=== PATIENT | male | born 1955 | race Caucasian/White ===

== ENCOUNTER 2018-05-08 16:25 | Emergency (ER) | payer OTHER ==
[~2018-05-08] VITALS: Ht 175.3 cm; Wt 90.9 kg
[~2018-05-08 16:25] MED LIST: ASPIR-LOW81 MG PO; ASPIRIN E.C. 8181 MG PO; DILTIAZEM CD120 MG PO; FISH OIL1 IU PO; FLECAINIDE ACET50 MG PO; MULTIPLE VITAMI1 CAP PO; MULTIVITAMIN PO; PRADAXA 150MG150 MG PO; PRADAXA150 MG PO
[2018-05-08 16:37] VITALS: TEMP 97
[2018-05-08 17:09] LABS: BASO # 0.1 (0.0-0.2); EOS # 0.4 (0.0-0.7); EOS % 5.5 % (0-4.0); GRAN # 4.3 (1.4-6.5); GRAN % 61.5 % (42.2-75.2); HEMATOCRIT 46.8 % (42.0-52.0); LYMPH # 1.5 (1.2-3.4); LYMPH % 21.8 % (20.0-51.0); MEAN CELL VOLUME 95 fl (80.0-100.0); MEAN CORPUSCULAR HEMOGLOBIN 32 pg (27.0-31.0); MEAN CORPUSCULAR HGB CONC 34 g/dl (33.0-37.0); MEAN PLATELET VOLUME 9.4 fl (7.4-10.4); MONO # 0.7 (0.1-0.6); MONO % 10.1 % (1.7-9.3); PLATELET COUNT 201 K/mm3 (130-400); RED BLOOD COUNT 4.94 M/mm3 (4.20-5.60); REDCELL DISTRIBUTION WIDTH-CV 12.2 % (11.5-14.5)
[2018-05-08 17:11] LABS: INR 0.9 (0.8-3.0); PROTHROMBIN TIME 10.6 SECONDS (9.7-12.8)
[2018-05-08 17:18] LABS: ALANINE AMINOTRANSFERASE 23 U/L (21-72); ALBUMIN 4.1 gm/dL (3.5-5.0); ALKALINE PHOSPHATASE 103 U/L (50-136); ANION GAP 9 mmol/L (7-16); AST,SGOT 43 U/L (15-37); BILIRUBIN,TOTAL 0.4 mg/dL (0.0-1.0); BLOOD UREA NITROGEN 18 mg/dL (9-20); CALCIUM 9.5 mg/dL (8.4-10.2); CARBON DIOXIDE 25 mmol/L (22-30); CHLORIDE 103 mmol/L (98-107); CREATININE, serum 0.82 mg/dL (0.66-1.25); GLUCOSE 103 mg/dL (74-106); POTASSIUM 4.1 mmol/L (3.4-5.0); SODIUM 137 mmol/L (137-145); TOTAL PROTEIN 6.7 gm/dL (6.4-8.2)
[2018-05-08 17:32] LABS: TROPONIN-I < 0.012 ng/mL (0.000-0.035)
[2018-05-08 21:32] VITALS: BP 142/85; PULSE 65
== END 2018-05-08 21:34 | disposition home or self-care (01) ==
LOC: COL.ER 16:25
PROVIDERS: Emergency Medicine
DX: R41.82 Altered mental status, unspecified (principal); R07.89 Other chest pain; E11.9 Type 2 diabetes mellitus without complications; I48.91 Unspecified atrial fibrillation
CPT/HCPCS: Q9967

== ENCOUNTER → 2018-06-01 | Outpatient (CLI) | payer MEDICARE, OTHER | LOC: COL.RAD 07:24 | DX: I66.21 Occlusion and stenosis of right posterior cerebral artery (principal); F44.89 Other dissociative and conversion disorders ==

== ENCOUNTER → 2019-01-10 | Outpatient (CLI) | payer MEDICARE, OTHER | LOC: COL.RAD 07:30 | DX: Z13.6 Encounter for screening for cardiovascular disorders (principal); Z87.891 Personal history of nicotine dependence ==

== ENCOUNTER 2021-11-21 14:56 | Emergency (ER) | payer MEDICARE ==
[~2021-11-21] VITALS: Ht 180.3 cm; Wt 88.6 kg
[2021-11-21 15:04] VITALS: TEMP 97.1
[2021-11-21 15:25] LABS: BASO # 0.1 K/mm3 (0.0-0.2); BASO % 0.9 % (0.0-2.0); EOS # 0.3 K/mm3 (0.0-0.7); GRAN # 3.6 K/mm3 (1.4-6.5); GRAN % 62.1 % (42.2-75.2); HEMATOCRIT 47.6 % (42.0-52.0); HEMOGLOBIN 16.4 g/dl (13.5-18.0); LYMPH # 1.3 K/mm3 (1.2-3.4); LYMPH % 22.5 % (20.0-51.0); MEAN CELL VOLUME 94 fl (80.0-100.0); MEAN CORPUSCULAR HEMOGLOBIN 32 pg (27-31); MEAN CORPUSCULAR HGB CONC 35 g/dl (33.0-37.0); MEAN PLATELET VOLUME 9.7 fl (7.4-10.4); MONO # 0.5 K/mm3 (0.1-0.6); MONO % 9.2 % (1.7-9.3); PLATELET COUNT 194 K/mm3 (130-400); RED BLOOD COUNT 5.06 M/mm3 (4.20-5.60); REDCELL DISTRIBUTION WIDTH-CV 12.4 % (11.5-14.5)
[2021-11-21 15:39] LABS: ALANINE AMINOTRANSFERASE 14 U/L (0-55); ALBUMIN 3.9 gm/dL (3.4-4.8); ALKALINE PHOSPHATASE 82 U/L (40-150); ANION GAP 9 mmol/L (7-16); AST,SGOT 19 U/L (5-34); BILIRUBIN,TOTAL 0.6 mg/dL (0.2-1.2); BLOOD UREA NITROGEN 12 mg/dL (8-26); CARBON DIOXIDE 24 mmol/L (23-31); CHLORIDE 104 mmol/L (98-107); CREATININE, serum 0.85 mg/dL (0.72-1.25); GLUCOSE 171 mg/dL (70-99); POTASSIUM 4.3 mmol/L (3.5-4.5); SODIUM 137 mmol/L (136-145); TOTAL PROTEIN 6.9 gm/dL (6.2-8.1)
[2021-11-21 15:46] LABS: ALCOHOL(ethanol),MEDICAL < 10 mg/dL (0-10); TROPONIN-I < 0.010 ng/mL (0.00-0.033)
[2021-11-21] MEDS ORDERED: ASPIRIN E.C. 8181 MG PO (19:39)
[2021-11-21] MEDS ORDERED: ZESTRIL 10MG10 MG PO (19:39)
[2021-11-21] MEDS ORDERED: REFRESH TEARS 330 ML OP (19:44)
[2021-11-21 20:00] VITALS: BP 142/91; PULSE 56
== END 2021-11-21 20:00 | disposition home or self-care (01) ==
LOC: COL.ER 14:56
PROVIDERS: Emergency Medicine
DX: R41.0 Disorientation, unspecified (principal); H53.8 Other visual disturbances; R03.0 Elevated blood-pressure reading, without diagnosis of hypertension; Z28.310 Unvaccinated for COVID-19
CPT/HCPCS: Q9967